=== PATIENT | female | born 1995 | race Caucasian/White ===

== ENCOUNTER 2020-09-25 14:18 | Inpatient (IN) ==
[2020-09-25] MEDS ORDERED: OXYTOCIN 30 UNITS/500 ML BAG IV PRN ×3 (14:33→23:59)
[2020-09-25] MEDS: LACTATED RINGER'S 1,000 ML IV PRN ×3 (14:40→23:05)
[2020-09-25] MEDS ORDERED: SODIUM CHLORIDE 0.9% INJ 10 ML VIAL ONE (14:43)
[2020-09-25] MEDS ORDERED: ePHEDrine sulfate 50 MG/ML AMP ONE (14:43)
[2020-09-25] MEDS ORDERED: BUPIVACAINE 0.25% 30 ML VIAL ONE (14:43)
[2020-09-25] MEDS ORDERED: fentaNYL 2MCG/ML ROPIVACAINE 1.25MG/ML 100 ML BAG EPI ONE (14:44)
[2020-09-25] MEDS ORDERED: fentaNYL citrate 100 MCG/2 ML VIAL ONE (14:44)
--- NOTE | 2020-09-25 14:45 | History & Physical Report ---
Date of Service September 25, 2020 Assessment & Plan (1) Uterine contractions at greater than 20 weeks of gestation: (2) Active labor at term: 24 yo at 40.1 wks in [place], desires epidural for pain VSS Afebrile FHR reassuring GBS neg Covid unknown, no symptoms Plan to admit, monitor, COVID testing, anticiapte History of Present Illness Primary Care Provider: NO PCP Patient is a 24 yo at 40.1 wks, ctxs since 01:30 am, got closer and more regular this afternoon No LOF/VB +FM's Her has been uncomplicated GBS neg f/h Fac V mutation, she is heterozygous and never had DVT Allergies Allergy/AdvReac Type Severity Reaction Status Date / Time azithromycin Allergy Nausea Verified 09/19/20 15:42 [From Zithromax Z-Mychal] Tramadol Allergy Nausea Uncoded 09/25/20 14:36 Home Medications Medication Instructions Recorded Confirmed Type None (Patient States No Home Meds) #0 01/19/09 History prenat.vits,nadya,[id number] 1 tab PO DAILY 09/19/20 09/19/20 History [ Vitamin] Patient History Medical History Factor 5 Leiden mutation, heterozygous Surgical History H/O shoulder surgery Left. [place] teeth extracted Family History Other No known health problems Social History Smoking Status: Former smoker Hx Alcohol Use: No Hx Substance Use: No Preferred Language: Irish marital status: Kristopher Menjivar Feels Safe at Home: Yes [employer] History No h/o STD's, no h/o HSV Review of Systems All systems reviewed & are unremarkable except as noted in HPI & below Physical Exam Constitutional: WD/WN, vitals as above well developed and + acute distress (with ctxs) Gastrointestinal (Abdomen): normal bowel sounds, soft, nontender, no hepatosplenomegaly (Gravid) Genitourinary: normal external appearance OB Exam Abdomen: + vertex Manual OB Exam: + cervical dilation 5 cm, + cervical effacement 90% and + station (bulgin bag) -2 OB Exam Monitor Tracing: + external uterine monitor used and + category I Results & Data ([facility]) Vital Signs (Past 12 Hours) Vital Signs Temp Pulse Resp BP 09/25/20 14:26 36.3 C L 103 H 22 123/81
--- NOTE | 2020-09-25 14:54 | Anesthesiology Consultation ---
Date of Service September 25, 2020 Assessment & Plan Chart Review Chart Review: Acceptable Risk for Labor Epidural Consults Requested none ASA ASA2 Proposed Anesthesia Anesthesia Type: Labor Epidural Risk / Benefits Reviewed With: PT / POA / Parent / Guardian, Accepts Plan and Informed Consent Obtained History Height/Weight Height: 5 ft 4 in Weight: 184 kg Allergies Allergy/AdvReac Type Severity Reaction Status Date / Time azithromycin Allergy Nausea Verified 09/19/20 15:42 [From Zithromax Z-Mychal] Tramadol Allergy Nausea Uncoded 09/25/20 14:36 Medications Home Medications Medication Instructions Recorded Confirmed Last Taken None (Patient States No Home Meds) #0 01/19/09 Unknown prenat.vits,nadya,[id number] 1 tab PO DAILY 09/19/20 09/19/20 09/18/20 [ Vitamin] NPO Date Last Intake of Fluids: 09/25/20 Time Last Intake of Fluids: 14:00 Date Last Intake of Solids: 09/25/20 Time Last Intake of Solids: 14:00 Past Medical History Medical History Factor 5 Leiden mutation, heterozygous Exercise / Class Metabolic Activity II 4-5 Yardwork/Stairs/Walk up hill Past Family History Family History Other No known health problems Past Surgical History Surgical History H/O shoulder surgery Left. [place] teeth extracted Past Anesthesia History No Hx of Anesthesia Complications and No Family Hx of Anesthesia Complications History of PONV No Hx of PONV and No Hx of Motion Sickness Social History Smoking Status: Former smoker Hx Alcohol Use: No Hx Substance Use: No Physical Exam Vital Signs Last Vital Signs Temp 36.3 C L 09/25/20 14:26 Pulse 103 H 09/25/20 14:26 Resp 22 09/25/20 14:26 BP 123/81 09/25/20 14:26 ENMT Mouth: no TMJ abnormality Thyromental Distance: > or= 3.5 Finger Breadths Mallampati Class: II Neck normal visual inspection and trachea midline; neck extension not limited Respiratory normal respiratory effort Auscultation: lungs clear to auscultation bilaterally Cardiovascular Rate/Rhythm: regular rate and regular rhythm Heart Sounds: no murmur Musculoskeletal Spine: normal cervical ROM Extremities: full ROM of extremities Neurologic moves all extremities Psychiatric Orientation: alert and oriented x 3
[2020-09-25 14:56] LABS: Hematocrit (blood only) 38.6 % (37-47); Hemoglobin 13.4 g/dL (12.0-16.0); Mean Corpuscular Hemoglobin 32.7 pg (25-34); Mean Corpuscular Hgb Conc 34.7 g/dL (32-36); Mean Corpuscular Volume 94.1 fL (80-100); Mean Platelet Volume 9.5 fL (7.4-10.4); Platelet Count 294 K/uL (130-400); RDW Coefficient of Variation 12.6 % (11.5-14.5); RDW Standard Deviation 42.9 fL (36.4-46.3); White Blood Count 11.11 K/uL (4.8-10.8)
[2020-09-25] MEDS ORDERED: NALOXONE HCL 1 MG in SODIUM CHLORIDE 0.9% 1000ML 1,000 ML IV PRN (14:57)
[2020-09-25] MEDS ORDERED: diphenhydrAMINE 50 MG/ML VIAL IV PRN (14:57)
[2020-09-25] MEDS ORDERED: ONDANSETRON INJ 2 MG/ML 2 ML VIAL IV PRN (14:57)
[2020-09-25] MEDS ORDERED: NALOXONE HCL 0.4 MG/1 ML VIAL/CARP IV PRN (14:57)
[2020-09-25] MEDS ORDERED: METOCLOPRAMIDE HCL 20 MG in SODIUM CHLORIDE 0.9% 50 ML IV PRN (14:57)
[2020-09-25] MEDS ORDERED: ePHEDrine sulfate 50 MG/ML AMP IV PRN (14:57)
[2020-09-25] MEDS: fentaNYL 2MCG/ML ROPIVACAINE 1.25MG/ML 100 ML BAG EPI PRN ×2 (15:18→22:47)
--- NOTE | 2020-09-25 15:50 | Obstetrical Progress Note ---
Date of Service September 25, 2020 Assessment & Plan Admission and Anticipated Discharge Date Admission Date: September 25, 2020 Subjective Patient is reevaluated She feels comfortable now, received epidural for pain VE: 7/ 90%/ -1, bulging bag, AROM'ed, clear fluid FHR categ I Ctxs q 2-3 min Continue to monitor Results & Data ([facility]) Vital Signs (Past 12 Hours) Vital Signs Temp Pulse Resp BP Pulse Ox 09/25/20 15:45 75 97 09/25/20 15:44 66 105/62 09/25/20 15:40 71 97 09/25/20 15:39 64 95/53 L 09/25/20 15:35 80 97/53 L 99 09/25/20 15:30 77 18 98 09/25/20 15:29 73 94/58 L 09/25/20 15:25 74 18 101/61 97 09/25/20 15:20 79 98 09/25/20 15:17 74 18 107/70 09/25/20 15:15 72 109/67 98 09/25/20 15:14 72 107/66 09/25/20 15:11 74 108/66 09/25/20 15:10 79 100 09/25/20 15:09 71 108/61 09/25/20 15:07 73 106/62 09/25/20 15:05 78 100 09/25/20 15:00 85 100 09/25/20 14:56 78 118/76 09/25/20 14:55 76 99 09/25/20 14:36 36.3 C L 103 H 22 123/87 09/25/20 14:26 36.3 C L 103 H 22 123/81
--- NOTE | 2020-09-25 18:00 | Obstetrical Progress Note ---
Date of Service September 25, 2020 Assessment & Plan Admission and Anticipated Discharge Date Admission Date: September 25, 2020 Subjective Patient is reevaluated VE; 9/ 90%/ 0 FHR categ I [place] ctxs q 2-3 min, Continue to monitor closely Anticipate Results & Data ([facility]) Vital Signs (Past 12 Hours) Vital Signs Temp Pulse Resp BP Pulse Ox 09/25/20 17:55 74 96 09/25/20 17:54 70 106/60 09/25/20 17:50 80 117/62 98 09/25/20 17:45 78 98 09/25/20 17:44 76 118/65 09/25/20 17:41 76 120/69 09/25/20 17:40 74 99 09/25/20 17:36 72 113/66 09/25/20 17:35 72 98 09/25/20 17:30 70 153/63 H 97 09/25/20 17:25 85 97 09/25/20 17:24 73 119/65 09/25/20 17:20 67 125/66 98 09/25/20 17:19 76 94 09/25/20 17:15 86 96 09/25/20 17:14 68 114/69 09/25/20 17:10 78 96 09/25/20 17:09 62 112/69 09/25/20 17:05 75 97 09/25/20 17:04 75 118/72 09/25/20 17:00 75 98 09/25/20 16:59 74 114/69 09/25/20 16:55 77 98 09/25/20 16:54 76 111/68 09/25/20 16:50 75 97 09/25/20 16:49 75 122/76 09/25/20 16:45 36.5 C 77 16 110/69 98 09/25/20 16:40 74 98 09/25/20 16:39 82 113/74 09/25/20 16:35 73 98 09/25/20 16:34 70 110/69 09/25/20 16:30 71 98 09/25/20 16:29 71 106/68 09/25/20 16:25 76 103/66 99 09/25/20 16:20 69 99 09/25/20 16:19 67 110/65 09/25/20 16:15 73 18 106/66 100 09/25/20 16:10 74 98 09/25/20 16:09 71 109/61 09/25/20 16:05 71 98 09/25/20 16:04 70 109/69 09/25/20 16:00 61 16 98/59 L 97 09/25/20 15:55 68 98 09/25/20 15:54 73 107/63 09/25/20 15:50 74 99 09/25/20 15:49 70 106/60 09/25/20 15:45 75 18 97 09/25/20 15:44 66 105/62 09/25/20 15:40 71 97 09/25/20 15:39 64 95/53 L 09/25/20 15:35 80 97/53 L 99 09/25/20 15:30 77 18 98 09/25/20 15:29 73 94/58 L 09/25/20 15:25 74 18 101/61 97 09/25/20 15:20 79 98 09/25/20 15:17 74 18 107/70 09/25/20 15:15 72 109/67 98 09/25/20 15:14 72 107/66 09/25/20 15:11 74 108/66 09/25/20 15:10 79 100 09/25/20 15:09 71 108/61 09/25/20 15:07 73 106/62 09/25/20 15:05 78 100 09/25/20 15:00 85 100 09/25/20 14:56 78 118/76 09/25/20 14:55 76 99 09/25/20 14:36 36.3 C L 103 H 22 123/87 09/25/20 14:26 36.3 C L 103 H 22 123/81
--- NOTE | 2020-09-25 20:15 | Obstetrical Progress Note ---
Date of Service September 25, 2020 Assessment & Plan Admission and Anticipated Discharge Date Admission Date: September 25, 2020 Subjective Patient is reevalauated VE; 10/ 100%/ +1 No feel or pressure nor urge to push Desires to labor down FHR categ I Ctxs spaced out, will augment with low dose of pitocin Continue to monitor closely Results & Data ([facility]) Vital Signs (Past 12 Hours) Vital Signs Temp Pulse Resp BP Pulse Ox 09/25/20 20:10 64 99 09/25/20 20:09 78 108/68 09/25/20 20:05 83 98 09/25/20 20:04 76 108/66 09/25/20 20:00 74 112/67 97 09/25/20 19:55 71 98 09/25/20 19:54 69 124/70 09/25/20 19:50 76 98 09/25/20 19:49 70 99/56 L 09/25/20 19:45 83 98 09/25/20 19:44 75 96/55 L 09/25/20 19:40 74 94/52 L 98 09/25/20 19:35 72 97 09/25/20 19:34 69 93/55 L 09/25/20 19:30 86 99 09/25/20 19:29 75 109/67 09/25/20 19:25 71 112/65 97 09/25/20 19:20 78 97 09/25/20 19:19 72 110/63 09/25/20 19:16 74 113/67 09/25/20 19:15 72 97 09/25/20 19:10 72 98 09/25/20 19:09 78 114/68 09/25/20 19:06 77 118/66 09/25/20 19:05 75 97 09/25/20 19:00 73 103/58 L 99 09/25/20 18:55 68 93/52 L 98 09/25/20 18:50 81 105/61 97 09/25/20 18:45 67 110/64 97 09/25/20 18:40 76 97 09/25/20 18:39 71 107/61 09/25/20 18:35 68 97 09/25/20 18:34 77 103/63 09/25/20 18:30 74 97 09/25/20 18:29 72 106/64 02/20/21 18:25 71 109/65 97 0220/21 18:20 66 97 0220/21 18:19 74 104/64 0220/21 18:15 73 98 02/20/21 18:14 70 101/61 02/20/21 18:11 72 111/61 02/20/21 18:10 72 96 0220/21 18:05 78 97 0220/21 18:04 74 114/68 0220/21 18:00 36.7 C 75 18 97 0220/21 17:59 77 114/65 0220/21 17:55 74 96 0220/21 17:54 70 106/60 0220/21 17:50 80 117/62 98 0220/21 17:45 78 98 0220/21 17:44 76 118/65 0220/21 17:41 76 120/69 0220/21 17:40 74 99 0220/21 17:36 72 113/66 0220/21 17:35 72 98 20/21 17:30 70 153/63 H 97 20/21 17:25 85 97 0220/21 17:24 73 119/65 0220/21 17:20 67 125/66 98 0220/21 17:19 76 94 20/21 17:15 86 96 0220/21 17:14 68 114/69 0220/21 17:10 78 96 0220/21 17:09 62 112/69 0220/21 17:05 75 97 0220/21 17:04 75 118/72 0220/21 17:00 75 98 0220/21 16:59 74 114/69 0220/21 16:55 77 98 0220/21 16:54 76 111/68 0220/21 16:50 75 97 0220/21 16:49 75 122/76 0220/21 16:45 36.5 C 77 16 110/69 98 0220/21 16:40 74 98 02/20/21 16:39 82 113/74 02/20/21 16:35 73 98 02/20/21 16:34 70 110/69 02/20/21 16:30 71 98 02/20/21 16:29 71 106/68 0220/ 16:25 76 103/66 99 09/25/21 16:20 69 99 02 16:19 67 110/65 02 16:15 73 18 106/66 100 09/25/20 16:10 74 98 09/25/20 16:09 71 109/61 09/25/20 16:05 71 98 09/25/20 16:04 70 109/69 09/25/20 16:00 61 16 98/59 L 97 09/25/20 15:55 68 98 09/25/20 15:54 73 107/63 09/25/20 15:50 74 99 09/25/20 15:49 70 106/60 09/25/20 15:45 75 18 97 09/25/20 15:44 66 105/62 09/25/20 15:40 71 97 09/25/20 15:39 64 95/53 L 09/25/20 15:35 80 97/53 L 99 09/25/20 15:30 77 18 98 09/25/20 15:29 73 94/58 L 09/25/20 15:25 74 18 101/61 97 09/25/20 15:20 79 98 09/25/20 15:17 74 18 107/70 09/25/20 15:15 72 109/67 98 09/25/20 15:14 72 107/66 09/25/20 15:11 74 108/66 09/25/20 15:10 79 100 09/25/20 15:09 71 108/61 02 15:07 73 106/62 09/25/20 15:05 78 100 09/25/20 15:00 85 100 0221 14:56 78 118/76 0221 14:55 76 99 0220/21 14:36 36.3 C L 103 H 22 123/87 0220 14:26 36.3 C L 103 H 22 123/81
--- NOTE | 2020-09-25 22:06 | Obstetrical Progress Note ---
Date of Service September 25, 2020 Assessment & Plan Admission and Anticipated Discharge Date Admission Date: September 25, 2020 Subjective Patient has been pushing for the last half hour VE head at +2 station, small caput FHR categ I [place] ctxs q 2-3 min Continue to monitor closely and pushing Results & Data ([facility]) Vital Signs (Past 12 Hours) Vital Signs Temp Pulse Resp BP Pulse Ox 09/25/20 21:56 82 89 L 09/25/20 21:51 106 H 122/56 L 09/25/20 21:50 89 91 09/25/20 21:49 91 H 100 09/25/20 21:44 101 H 90 09/25/20 21:38 82 89 L 09/25/20 21:34 114 H 99 09/25/20 21:25 76 91 09/25/20 21:21 73 116/66 09/25/20 21:19 68 100 09/25/20 21:15 36.6 C 16 09/25/20 21:05 75 94/54 L 09/25/20 21:04 70 99 09/25/20 20:51 76 101/61 09/25/20 20:49 83 100 09/25/20 20:35 77 117/64 09/25/20 20:34 75 98 09/25/20 20:20 72 91/51 L 09/25/20 20:15 76 104/55 L 99 09/25/20 20:10 64 99 09/25/20 20:09 78 108/68 09/25/20 20:05 83 98 09/25/20 20:04 76 108/66 09/25/20 20:00 74 112/67 97 09/25/20 19:55 71 98 09/25/20 19:54 69 124/70 09/25/20 19:50 76 98 09/25/20 19:49 70 99/56 L 09/25/20 19:45 83 98 09/25/20 19:44 75 96/55 L 09/25/20 19:40 74 94/52 L 98 09/25/20 19:35 72 97 09/25/20 19:34 69 93/55 L 09/25/20 19:30 86 99 09/25/20 19:29 75 109/67 09/25/20 19:25 71 112/65 97 02/20/21 19:20 78 97 0220/21 19:19 72 110/63 0220/21 19:16 74 113/67 0220/21 19:15 72 97 0220/21 19:10 72 98 0220/21 19:09 78 114/68 0220/21 19:06 77 118/66 0220/21 19:05 75 97 0220/21 19:00 73 103/58 L 99 09/25/20 18:55 68 93/52 L 98 2021 18:50 81 105/61 97 0220/21 18:45 67 110/64 97 0220/21 18:40 76 97 0220/21 18:39 71 107/61 0220/21 18:35 68 97 20/21 18:34 77 103/63 0220/21 18:30 74 97 0220/21 18:29 72 106/64 0220/21 18:25 71 109/65 97 21 18:20 66 97 21 18:19 74 104/64 0220/21 18:15 73 98 02/21 18:14 70 101/61 0220/21 18:11 72 111/61 0220/21 18:10 72 96 20/21 18:05 78 97 02/21 18:04 74 114/68 0220/21 18:00 36.7 C 75 18 97 20/21 17:59 77 114/65 0220/21 17:55 74 96 0220/21 17:54 70 106/60 0220/21 17:50 80 117/62 98 0220/21 17:45 78 98 0220/21 17:44 76 118/65 02/20/21 17:41 76 120/69 0220/21 17:40 74 99 0220/21 17:36 72 113/66 0220/21 17:35 72 98 0220/21 17:30 70 153/63 H 97 0220/21 17:25 85 97 0220/21 17:24 73 119/65 0220/21 17:20 67 125/66 98 0220/21 17:19 76 94 02/20/21 17:15 86 96 02/21 17:14 68 114/69 02/21 17:10 78 96 02/ 17:09 62 112/69 0220/21 17:05 75 97 02/ 17:04 75 118/72 0220/21 17:00 75 98 02/21 16:59 74 114/69 0220/21 16:55 77 98 02/21 16:54 76 111/68 09/25/21 16:50 75 97 09/25/21 16:49 75 122/76 02/21 16:45 36.5 C 77 16 110/69 98 09/25/ 16:40 74 98 02 16:39 82 113/74 02 16:35 73 98 09/25/20 16:34 70 110/69 09/25/ 16:30 71 98 09/25/20 16:29 71 106/68 09/25/20 16:25 76 103/66 99 09/25/20 16:20 69 99 0221 16:19 67 110/65 02 16:15 73 18 106/66 100 02/ 16:10 74 98 09/25/20 16:09 71 109/61 02/ 16:05 71 98 09/25/20 16:04 70 109/69 02/21 16:00 61 16 98/59 L 97 09/25/20 15:55 68 98 09/25/21 15:54 73 107/63 02/21 15:50 74 99 21 15:49 70 106/60 0220/21 15:45 75 18 97 20/21 15:44 66 105/62 0220/21 15:40 71 97 0220/21 15:39 64 95/53 L 0220/21 15:35 80 97/53 L 99 20/21 15:30 77 18 98 0220/21 15:29 73 94/58 L 0220/21 15:25 74 18 101/61 97 0220/21 15:20 79 98 0220/21 15:17 74 18 107/70 0220/21 15:15 72 109/67 98 0220/21 15:14 72 107/66 09/25/20 15:11 74 108/66 09/25/20 15:10 79 100 09/25/20 15:09 71 108/61 09/25/20 15:07 73 106/62 09/25/20 15:05 78 100 09/25/20 15:00 85 100 09/25/20 14:56 78 118/76 09/25/20 14:55 76 99 09/25/20 14:36 36.3 C L 103 H 22 123/87 09/25/20 14:26 36.3 C L 103 H 22 123/81
[2020-09-25] MEDS ORDERED: MINERAL OIL 30 ML UDC ONE (22:48)
--- NOTE | 2020-09-25 23:13 | Obstetrical Progress Note ---
Date of Service September 25, 2020 Assessment & Plan Admission and Anticipated Discharge Date Admission Date: September 25, 2020 Subjective Patient has been pushing for about 1.5 hours Caput is partially visible at introitus, +3, FHR categ I except early decels with some of the contractions with spontaneous recovery Continue to monitor and pushing Results & Data ([facility]) Vital Signs (Past 12 Hours) Vital Signs Temp Pulse Resp BP Pulse Ox 09/25/20 23:05 85 109/59 L 09/25/20 23:04 86 99 09/25/20 22:50 91 H 116/58 L 09/25/20 22:49 96 H 98 09/25/20 22:34 87 94 09/25/20 22:19 91 H 96 09/25/20 22:04 93 H 99 09/25/20 21:56 82 89 L 09/25/20 21:51 106 H 122/56 L 09/25/20 21:50 89 91 09/25/20 21:49 91 H 100 09/25/20 21:44 101 H 90 09/25/20 21:38 82 89 L 09/25/20 21:34 114 H 99 09/25/20 21:25 76 91 09/25/20 21:21 73 116/66 09/25/20 21:19 68 100 09/25/20 21:15 36.6 C 16 09/25/20 21:05 75 94/54 L 09/25/20 21:04 70 99 09/25/20 20:51 76 101/61 09/25/20 20:49 83 100 09/25/20 20:35 77 117/64 09/25/20 20:34 75 98 09/25/20 20:20 72 91/51 L 09/25/20 20:15 76 104/55 L 99 09/25/20 20:10 64 99 09/25/20 20:09 78 108/68 09/25/20 20:05 83 98 09/25/20 20:04 76 108/66 09/25/20 20:00 74 112/67 97 09/25/20 19:55 71 98 09/25/20 19:54 69 124/70 09/25/20 19:50 76 98 09/25/20 19:49 70 99/56 L 09/25/20 19:45 83 98 02/20/21 19:44 75 96/55 L 20/21 19:40 74 94/52 L 98 20/21 19:35 72 97 0220/21 19:34 69 93/55 L 20/21 19:30 86 99 0220/21 19:29 75 109/67 0220/21 19:25 71 112/65 97 0220/21 19:20 78 97 0220 19:19 72 110/63 0220/21 19:16 74 113/67 0220/21 19:15 72 97 0220/ 19:10 72 98 0220/ 19:09 78 114/68 0220/ 19:06 77 118/66 0220/21 19:05 75 97 0220 19:00 73 103/58 L 99 09/25/20 18:55 68 93/52 L 98 09/25/20 18:50 81 105/61 97 0220/21 18:45 67 110/64 97 20/21 18:40 76 97 0220/21 18:39 71 107/61 0220/21 18:35 68 97 0220/21 18:34 77 103/63 0220/21 18:30 74 97 0220/21 18:29 72 106/64 0220/21 18:25 71 109/65 97 0220/21 18:20 66 97 0220/21 18:19 74 104/64 0220/21 18:15 73 98 0220/21 18:14 70 101/61 0220/21 18:11 72 111/61 0220/21 18:10 72 96 0220/21 18:05 78 97 0220/21 18:04 74 114/68 0220/21 18:00 36.7 C 75 18 97 0220/21 17:59 77 114/65 0220/21 17:55 74 96 02/20/21 17:54 70 106/60 0220/21 17:50 80 117/62 98 02/20/21 17:45 78 98 02/20/21 17:44 76 118/65 0220/21 17:41 76 120/69 0220/21 17:40 74 99 0220/21 17:36 72 113/66 02/20/21 17:35 72 98 02/20/21 17:30 70 153/63 H 97 0220/21 17:25 85 97 0220/21 17:24 73 119/65 0220/21 17:20 67 125/66 98 0220/21 17:19 76 94 0220/21 17:15 86 96 0220/21 17:14 68 114/69 0220/21 17:10 78 96 0220/21 17:09 62 112/69 0220/21 17:05 75 97 0220/21 17:04 75 118/72 0220/21 17:00 75 98 0220/21 16:59 74 114/69 0220/21 16:55 77 98 0220/21 16:54 76 111/68 0220/21 16:50 75 97 20/21 16:49 75 122/76 0220/21 16:45 36.5 C 77 16 110/69 98 02/21 16:40 74 98 0220/21 16:39 82 113/74 0220/21 16:35 73 98 0220/21 16:34 70 110/69 0220/21 16:30 71 98 0220/21 16:29 71 106/68 0220/21 16:25 76 103/66 99 0220/21 16:20 69 99 0220/21 16:19 67 110/65 0220/21 16:15 73 18 106/66 100 0220/21 16:10 74 98 0220/21 16:09 71 109/61 0220/21 16:05 71 98 0220/21 16:04 70 109/69 0220/21 16:00 61 16 98/59 L 97 0220/21 15:55 68 98 02/20/21 15:54 73 107/63 02/20/21 15:50 74 99 02/20/21 15:49 70 106/60 0220/21 15:45 75 18 97 02/20/21 15:44 66 105/62 02/20/21 15:40 71 97 02/20/21 15:39 64 95/53 L 0220/21 15:35 80 97/53 L 99 09/25/20 15:30 77 18 98 09/25/20 15:29 73 94/58 L 09/25/20 15:25 74 18 101/61 97 09/25/20 15:20 79 98 09/25/20 15:17 74 18 107/70 09/25/20 15:15 72 109/67 98 09/25/20 15:14 72 107/66 09/25/20 15:11 74 108/66 09/25/20 15:10 79 100 09/25/20 15:09 71 108/61 09/25/20 15:07 73 106/62 09/25/20 15:05 78 100 09/25/20 15:00 85 100 09/25/20 14:56 78 118/76 09/25/20 14:55 76 99 09/25/20 14:36 36.3 C L 103 H 22 123/87 09/25/20 14:26 36.3 C L 103 H 22 123/81
[2020-09-25] MEDS ORDERED: miSOPROStoL 200 MCG TAB ONE (23:53)
[2020-09-25] MEDS ORDERED: DIPHTHERIA/TETANUS/PERTUSSIS 0.5 ML SYR/VIAL IM ONE (23:59)
[2020-09-25] MEDS ORDERED: miSOPROStoL 200 MCG TAB PR ONE (23:59)
[2020-09-25] MEDS ORDERED: HYDROCORTISONE ACETATE 25 MG SUPP PR PRN (23:59)
[2020-09-25] MEDS ORDERED: SUPERCREAM 0.870% 15 GM JAR EXT PRN (23:59)
[2020-09-25] MEDS ORDERED: ACETAMINOPHEN 325 MG TAB PO PRN (23:59)
[2020-09-25] MEDS ORDERED: oxyCODONE/ACETAMINOPHEN 5mg/325mg TAB PO PRN (23:59)
[2020-09-25] MEDS ORDERED: BENZOCAINE 20% AER SPR 82.5 GM CAN EXT PRN (23:59)
[2020-09-25] MEDS ORDERED: bisacodyL 10 MG SUPP PR PRN (23:59)
[2020-09-25] MEDS ORDERED: MEASLES, MUMPS & RUBELLA VIRUS VIAL SQ ONE (23:59)
[2020-09-26] MEDS: IBUPROFEN 600 MG TAB PO PRN ×4 (01:24→21:02)
--- NOTE | 2020-09-26 01:26 | Delivery Summary ---
DATE OF OPERATION: 09/25/2020 TIME OF DELIVERY: 2332 hours. DETAILS OF DELIVERY: The patient was found to be fully dilated and desired to push. She pushed for about 2 hours and delivered the head without difficulty. Shoulders were delivered with minimal traction. Baby was handed off to the mother where mouth and nose were suctioned. Cord was clamped x2 and cut and cord blood was obtained. Her vagina and perineum were checked for lacerations. There was a small second-degree perineal laceration at the posterior fourchette. It was confirmed with rectal exam. Good sphincter tone was noted. Gloves were changed. This was repaired with 2-0 Vicryl in a running locked fashion starting from vaginal mucosa bringing the bulbocavernosus muscles and perineal body muscles together, skin in a subcuticular fashion. Excellent hemostasis was achieved. Then there was a small first-degree laceration at the hymen at 10 o'clock position, which was repaired with [id number] stitch x1 and excellent hemostasis was achieved. Rest of the vagina and labia were intact. Placenta was found to be in the vagina, delivered spontaneous as intact and complete. Uterus was explored, found to be empty. Lower segment was cleared of all the clots and debris. IV Pitocin was started. Fundus was firm. EBL was 300 mL. The patient was also given 800 mcg of rectal Cytotec to help for the bleeding and the bleeding was minimal at the end. Mom and baby tolerated the procedure well. Sponge, lap, and needle count was correct x2. Baby was a viable female , Apgars 8/9, weight is 3597 gr. No complications happened and I was present during whole procedure. I attest to the content of the Intraoperative Record and any orders documented therein. Any exceptions are noted below. MTDD
[2020-09-26 06:34] LABS: Hemoglobin 12.2 g/dL (12.0-16.0); Mean Corpuscular Hemoglobin 32.5 pg (25-34); Mean Corpuscular Hgb Conc 34.9 g/dL (32-36); Mean Corpuscular Volume 93.3 fL (80-100); Mean Platelet Volume 9.4 fL (7.4-10.4); Platelet Count 230 K/uL (130-400); RDW Coefficient of Variation 12.6 % (11.5-14.5); RDW Standard Deviation 42.8 fL (36.4-46.3); Red Blood Count 3.75 M/uL (4.2-5.4); White Blood Count 18.78 K/uL (4.8-10.8)
--- NOTE | 2020-09-26 07:11 | Anesthesia Procedure Note ---
Date of Service September 26, 2020 Anesthesia Post Epidural Note Vital Signs Vital Signs: Temp Pulse Resp BP Pulse Ox 36.9 C 112 H 16 93/54 L 97 09/25/20 23:50 09/26/20 02:01 09/26/20 01:50 09/26/20 02:01 09/25/20 23:49 Notes Mental Status: alert / awake / arousable Patient Amnestic to Procedure: Yes Nausea / Vomiting: adequately controlled Pain: adequately controlled Airway Patency, RR, SpO2: stable & adequate BP & HR: stable & adequate Hydration State: stable & adequate Neuraxial Anesthesia: was administered Anesthetic Complications: no major complications apparent and Pt Satisfied with anesthetic care Epidural: Removed without complications and With tip intact
[2020-09-26] MEDS: FERROUS SULFATE 325 MG TAB PO SCH (09:14)
[2020-09-26] MEDS: DOCUSATE SODIUM 100 MG CAP PO SCH ×2 (09:14→21:02)
[2020-09-26] MEDS: PRENATAL VITAMIN 1 TAB PO SCH (09:14)
--- NOTE | 2020-09-26 11:25 | Obstetrical Progress Note ---
Date of Service September 26, 2020 Assessment & Plan Admission and Anticipated Discharge Date Admission Date: September 25, 2020 Subjective Patient is seen and examined. She feels well, no complaints. Ambulating without dizziness Voiding without difficulty Tolerating regular diet with out N&V Bleeding is minimal No fever/ chills/ CP/ SOB/ N&V/ Leg pain Breast feeding without problems Vital Signs Temp Pulse Pulse Resp BP BP Pulse Ox 09/26/20 07:15 36.5 C 80 18 99/67 L 99 09/26/20 02:01 112 H 93/54 L 09/26/20 01:50 16 09/26/20 01:35 85 110/60 09/26/20 01:20 90 16 116/64 09/26/20 01:05 80 105/57 L 09/26/20 00:50 86 16 106/58 L 09/26/20 00:35 89 16 111/55 L 09/26/20 00:20 88 16 123/69 09/26/20 00:05 85 16 110/64 09/25/20 23:50 36.9 C 76 18 101/55 L 09/25/20 23:49 79 97 09/25/20 23:34 102 H 98 Lab Results 09/25/20 09/25/20 09/25/20 Range/Units 14:38 Unknown Unknown WBC 11.11 H (4.8-10.8) K/uL RBC 4.10 L (4.2-5.4) M/uL Hgb 13.4 (12.0-16.0) g/dL Hct 38.6 (37-47) % MCV 94.1 (80-100) fL MCH 32.7 (25-34) pg MCHC 34.7 (32-36) g/dL RDW Std Deviation 42.9 (36.4-46.3) fL RDW Coeff of Sissy 12.6 (11.5-14.5) % Plt Count 294 (130-400) K/uL MPV 9.5 (7.4-10.4) fL COVID-19 Eval [facility] SARS-[facility]-2, RNA, NAAT NEGATIVE (NEGATIVE) 09/26/20 Range/Units 06:23 WBC 18.78 H (4.8-10.8) K/uL RBC 3.75 L (4.2-5.4) M/uL Hgb 12.2 (12.0-16.0) g/dL Hct 35.0 L (37-47) % MCV 93.3 (80-100) fL MCH 32.5 (25-34) pg MCHC 34.9 (32-36) g/dL RDW Std Deviation 42.8 (36.4-46.3) fL RDW Coeff of Sissy 12.6 (11.5-14.5) % Plt Count 230 (130-400) K/uL MPV 9.4 (7.4-10.4) fL COVID-19 Eval Order SARS-CoV-2, RNA, NAAT (NEGATIVE) PE: General: Alert, orientedx3, NAD Abd: soft, NT, fundus firm, below Umbilicus Perineum intact, Lochia rubra minimal Ext; NT, no edema AP: 24 yo s/p , ppd# 1 VSS Afebrile doing well Continue routine care All questions were answered D/C home tomorrow Results & [facility] ([facility]) Vital Signs (Past 12 Hours) Vital Signs Temp Pulse Pulse Resp BP BP Pulse Ox 09/26/20 07:15 36.5 C 80 18 99/67 L 99 09/26/20 02:01 112 H 93/54 L 09/26/20 01:50 16 09/26/20 01:35 85 110/60 09/26/20 01:20 90 16 116/64 09/26/20 01:05 80 105/57 L 09/26/20 00:50 86 16 106/58 L 09/26/20 00:35 89 16 111/55 L 09/26/20 00:20 88 16 123/69 09/26/20 00:05 85 16 110/64 09/25/20 23:50 36.9 C 76 18 101/55 L 09/25/20 23:49 79 97 09/25/20 23:34 102 H 98
[2020-09-26] MEDS: METHYLERGONOVINE MALEATE 0.2 MG TAB PO SCH ×3 (11:47→21:02)
[2020-09-26] MEDS ORDERED: bisacodyL 5 MG TABEC PO SCH (20:00)
[2020-09-27] MEDS: METHYLERGONOVINE MALEATE 0.2 MG TAB PO SCH ×3 (00:05→08:43)
[2020-09-27] MEDS: IBUPROFEN 600 MG TAB PO PRN ×2 (04:11→08:43)
[2020-09-27 06:35] LABS: Basophils # (auto) 0.02 K/uL (0-0.2); Basophils % (auto) 0.2 %; Eosinophils # (auto) 0.13 K/uL (0-0.5); Eosinophils % (auto) 1.1 %; Hematocrit (blood only) 35.7 % (37-47); Hemoglobin 12.2 g/dL (12.0-16.0); Immature Granulocytes # (auto) 0.04 K/uL (0.00-0.02); Immature Granulocytes % (auto) 0.3 %; Lymphocytes # (auto) 1.73 K/uL (1.2-3.4); Lymphocytes % (auto) 14.6 %; Mean Corpuscular Hemoglobin 32.6 pg (25-34); Mean Corpuscular Hgb Conc 34.2 g/dL (32-36); Mean Corpuscular Volume 95.5 fL (80-100); Mean Platelet Volume 9.8 fL (7.4-10.4); Monocytes # (auto) 0.62 K/uL (0.11-0.59); Monocytes % (auto) 5.2 %; Neutrophils # (auto) 9.35 K/uL (1.4-6.5); Neutrophils % (auto) 78.6 %; Platelet Count 218 K/uL (130-400); RDW Coefficient of Variation 12.8 % (11.5-14.5); RDW Standard Deviation 44.1 fL (36.4-46.3); Red Blood Count 3.74 M/uL (4.2-5.4); White Blood Count 11.89 K/uL (4.8-10.8)
[2020-09-27] MEDS: PRENATAL VITAMIN 1 TAB PO SCH (08:43)
[2020-09-27] MEDS: DOCUSATE SODIUM 100 MG CAP PO SCH (08:43)
[2020-09-27] MEDS: FERROUS SULFATE 325 MG TAB PO SCH (08:43)
--- NOTE | 2020-09-27 09:30 | Obstetrical Progress Note ---
Date of Service September 27, 2020 Assessment & Plan Admission and Anticipated Discharge Date Admission Date: September 25, 2020 Subjective PPD#2 doing well plans for d/c passing gas tolerating diet out of bed Physical Exam Constitutional: WD/WN, vitals as above well developed and comfortable abdomen soft and non-tender fundus firm no edema neg Geoffrey's for d/c Results & Data ([facility]) Vital Signs (Past 12 Hours) Vital Signs Temp Pulse Resp BP Pulse Ox 09/27/20 07:15 36.8 C 71 16 108/70 97 09/27/20 00:10 36.6 C 76 18 110/73 Laboratory Results Laboratory Results - last 72 hr 09/25/20 09/25/20 09/25/20 14:38 Unknown Unknown WBC 11.11 H RBC 4.10 L Hgb 13.4 Hct 38.6 MCV 94.1 MCH 32.7 MCHC 34.7 RDW Std Deviation 42.9 RDW Coeff of Sissy 12.6 Plt Count 294 MPV 9.5 Immature Gran % (Auto) Neut % (Auto) Lymph % (Auto) [place] % (Auto) Eos % (Auto) Baso % (Auto) Neut # (Auto) Lymph # (Auto) [place] # (Auto) Eos # (Auto) Baso # (Auto) Immature Gran # (Auto) COVID-19 Eval Order [facility] SARS-CoV-2, RNA, NAAT NEGATIVE 09/26/20 09/27/20 06:23 05:57 WBC 18.78 H 11.89 H RBC 3.75 L 3.74 L Hgb 12.2 12.2 Hct 35.0 L 35.7 L MCV 93.3 95.5 MCH 32.5 32.6 MCHC 34.9 34.2 RDW Std Deviation 42.8 44.1 RDW Coeff of Sissy 12.6 12.8 Plt Count 230 218 MPV 9.4 9.8 Immature Gran % (Auto) 0.3 Neut % (Auto) 78.6 Lymph % (Auto) 14.6 [place] % (Auto) 5.2 Eos % (Auto) 1.1 Baso % (Auto) 0.2 Neut # (Auto) 9.35 H Lymph # (Auto) 1.73 [place] # (Auto) 0.62 H Eos # (Auto) 0.13 Baso # (Auto) 0.02 Immature Gran # (Auto) 0.04 H COVID-19 Eval Order SARS-CoV-2, RNA, NAAT
== END 2020-09-27 10:50 | disposition home or self-care (01) | DRG 807 ==
LOC: OPB 14:18 → 4S1 14:20 → 4S2 09-26 04:35